=== PATIENT | female | born 1985 ===

== ENCOUNTER 2017-07-03 16:29 | Emergency (ER) | payer OTHER, BC ==
[2017-07-03 16:29] VITALS: BMI 33.0
[2017-07-03 16:48] VITALS: BP 123/70; PULSE 93; RESP 18; TEMP 98; O2SAT 98
[2017-07-03] MEDS ORDERED: Naproxen 500 MG TAB PO ONE (16:54)
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
--- NOTE | 2017-07-03 18:26 | RAD ---
PROCEDURE: Radiographs of the Left Shoulder HISTORY: trauma COMPARISON: No prior. FINDINGS: BONES: Normal. No fracture. JOINTS: Normal. Glenohumeral and acromioclavicular joints preserved. No osteoarthritis. SOFT TISSUES: Normal. OTHER FINDINGS: None. IMPRESSION: Unremarkable radiographs of the left shoulder.
--- NOTE | 2017-07-03 18:28 | RAD ---
PROCEDURE: Cervical Spine Radiographs. HISTORY: Posttraumatic pain. COMPARISON: None. FINDINGS: BONES: There is a significant degree of kyphosis without evidence of vertebral body fracture. No evidence of facet abnormality. Preserved C1-C2 relationship. DISC SPACES: Normal. SOFT TISSUES: Normal. No prevertebral soft tissue swelling. OTHER FINDINGS: None. IMPRESSION: Severe kyphosis. In the clinical setting of trauma follow-up CT scan strongly recommended
== END 2017-07-03 17:55 | disposition home or self-care (01) ==
LOC: H.ER 16:29
DX: S13.4XXA Sprain of ligaments of cervical spine, initial encounter (principal); S43.402A Unspecified sprain of left shoulder joint, initial encounter; V43.52XA Car driver injured in collision with other type car in traffic accident, initial encounter; Y92.410 Unspecified street and highway as the place of occurrence of the external cause

== ENCOUNTER 2017-07-10 10:53 | Emergency (ER) | payer OTHER, BC ==
[2017-07-10 10:53] VITALS: BMI 33.0
[2017-07-10 11:30] VITALS: BP 126/75; PULSE 95; RESP 18; TEMP 97; O2SAT 99
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
--- NOTE | 2017-07-10 14:05 | CT ---
PROCEDURE: CT Cervical Spine without contrast HISTORY: <paresthesia, pain> COMPARISON: None available. TECHNIQUE: Axial computed tomography images were obtained of the cervical spine without the use of intravenous contrast. Coronal and sagittal reformatted images were created and reviewed. Radiation dose: Total exam DLP = 674.11 mGy-cm. This CT exam was performed using one or more of the following dose reduction techniques: Automated exposure control, adjustment of the mA and/or kV according to patient size, and/or use of iterative reconstruction technique. FINDINGS: VERTEBRAE: No acute compression fractures no retropulsed fragments. . There is minor chronic anterior stature loss of the C5 and C6 segments felt to be degenerative in origin however the remaining vertebral bodies otherwise exhibit normal stature. There is moderate kyphosis/ reversal of the normal cervical lordosis likely due to patient positioning in the gantry. Vertebral bodies and facets are otherwise normally aligned. Made of Note also of a localized levoscoliosis centered at the T2-T3 level. DISCS/SPINAL CANAL/NEURAL FORAMINA: Mild multilevel degenerative spondylosis is present. At the C5-C6 level, there is mild disc space narrowing more so along the anterior disc margin with small marginal anterior osteophyte formation. No disc herniation or significant disc bulge so far as can be seen. . Central canal appears marginal to adequate. Exit foramina appear adequate. At the C6-C7 level, there is also anterior disc space narrowing with small marginal anterior osteophyte formation and small central and bilateral disc bulge. . Mildly hypertrophic uncovertebral joints. Changes result in [id number] central canal stenosis and presumed cord compression. Exit foramina appear narrowed on the left and adequate on the right. At the C3-C4 level, there is mild anterior disc space narrowing which may in part be due to kyphotic angulation. No disc herniation nor significant disc bulge. The overall central bony canal appears marginal to adequate. Exit foramina are adequate. Minor anterior disc space narrowing seen at the C3-C4 level which may in part be due to cervical kyphosis. No disc herniation or significant disc bulge. Central canal appears adequate. . PARASPINAL SOFT TISSUES: Prevertebral and paraspinal soft tissues unremarkable. OTHER FINDINGS: None. IMPRESSION: No acute fractures. . Mild multilevel degenerative spondylosis as detailed above. There is kyphosis/ reversal of the normal cervical lordosis which made part be due to patient positioning gantry. .
== END 2017-07-10 14:44 | disposition home or self-care (01) ==
LOC: H.ER 10:53
DX: S16.1XXA Strain of muscle, fascia and tendon at neck level, initial encounter (principal); M54.12 Radiculopathy, cervical region; V43.52XA Car driver injured in collision with other type car in traffic accident, initial encounter; Y92.410 Unspecified street and highway as the place of occurrence of the external cause; F32.9 Major depressive disorder, single episode, unspecified